=== PATIENT | male | born 1950 | race Caucasian/White ===

== ENCOUNTER 2016-12-26 21:02 | Emergency (ER) | payer OTHER ==
[2016-12-26] MEDS ORDERED: methylPREDNISolone Sod Succ/PF 125 MG/2 ML VIAL ONE (22:23)
[2016-12-26] MEDS ORDERED: Piperacillin/Tazobactam 3.375 GM VIAL ONE (22:23)
[2016-12-26] MEDS ORDERED: Acetaminophen/Codeine 30-300mg Tablet ONE (22:23)
[2016-12-26] MEDS ORDERED: Sodium Chloride 0.9% 100 ML BAG ONE (22:27)
--- NOTE | 2016-12-26 22:44 | RAD ---
LEFT ANKLE THREE VIEWS: History: Pain. Comparison: None. FINDINGS: Joint spaces are preserved. Ankle mortise is intact. Minimal medial soft tissue swelling. No fractur e. IMPRESSION: Minimal soft tissue swelling. No fracture. POS: [facility]
[2016-12-26 22:52] LABS: #Basophils 0.1 thou/uL (0.0-0.2); #Eosinphils 0.3 thou/uL (0.0-0.7); #Lymphocytes 2.2 thou/uL (1.20-3.40); #Monocytes 1.2 thou/uL (0.11-0.59); #Neutrophils 7.2 thou/uL (1.40-6.50); %Eosinophils 2.4 % (0.0-10.0); %Lymphocytes 20.3 % (21.0-51.0); %Monocytes 11.2 % (0.0-10.0); %Neutrophils 65.1 % (42.0-75.0); Hemoglobin 16.4 g/dL (14.0-18.0); Mean Corpuscular HGB CONC 33.2 g/dL (32.0-36.0); Mean Corpuscular Hemoglobin 28.8 pg (27.0-31.0); Mean Corpuscular Volume 86.8 fl (80.0-94.0); Mean Platelet Volume 7.4 fL (7.4-10.4); Platelet Count 225 thou/uL (130-400); RBC Distribution Width 12.8 % (11.5-14.5); Red Blood Cell (RBC) Count 5.68 mill/uL (4.70-6.10); White Blood Cell (WBC) Count 11.1 thou/uL (4.8-10.8)
[2016-12-26 23:01] LABS: Anion Gap 18 mmol/L (10-20); BUN (Urea Nitrogen) 26 mg/dL (8.4-25.7); Calc. Creatinine Clearance 0 mL/min (70-130); Calcium 9.1 mg/dL (7.8-10.44); Carbon Dioxide 21 mmol/L (23-31); Chloride 106 mmol/L (98-107); Estimated GFR-MDRD 73; Glucose 103 mg/dL (80-115); Potassium 3.8 mmol/L (3.5-5.1); Sodium 141 mmol/L (136-145)
== END 2016-12-27 01:00 | disposition home or self-care (01) ==
LOC: MADERS 21:02
DX: M25.472 Effusion, left ankle (principal); E78.5 Hyperlipidemia, unspecified; K21.9 Gastro-esophageal reflux disease without esophagitis; I10 Essential (primary) hypertension; F41.9 Anxiety disorder, unspecified; F17.210 Nicotine dependence, cigarettes, uncomplicated; Z79.82 Long term (current) use of aspirin; Z79.899 Other long term (current) drug therapy
CPT/HCPCS: 36415; 80048; 85025; 87040; 96365; 96367; 96375; J2543; J2930; J3370; J7050